=== PATIENT | female | born 1965 | race Caucasian/White ===

== ENCOUNTER 2017-08-28 13:06 | Emergency (ER) | payer BC ==
[2017-08-28 13:19] VITALS: BP 147/77
[2017-08-28] MEDS ORDERED: Albuterol/Ipratropium NEB.SOL* Albuterol 2.5 MG/Ipratropium 0.5 MG 3 ML INH ONE (13:44)
--- NOTE | 2017-08-28 14:00 | UC ---
Lucio Kasper Abhishek, scribed for Jackie Deal MD on 08/28/17 at 1350 . FLU HPI - HPI Summary HPI Summary: This patient is a 52 year old F presenting to [facility] accompanied by with a chief complaint of sinus and chest congestion since 08/13/17. PT states that she had contact with her grandson that visited on [place] who had head congestion. The pt reports cough (productive, clear and slightly yellow or brown ), wheezing, sore throat, and head congestion, ear ache, and PND. Pt denies fever, chills, N/V/D and rash. + fatigue. Pt was exposed to grandchild on xmas with nasal congestion. The patient rates the pain 2/10 in severity. Pt does not have asthma, but frequently get bronchitis. Symptoms aggravated by nothing. Symptoms alleviated by nothing Pt has been using MDI with short term relief. Pt did not get the flu vaccine. Pt states has a h/o htn. Not currently medicated - no current PCP Medications reviewed during this visit. - History of Current Complaint Chief Complaint: UCRespiratory Stated Complaint: CONGESTED Time Seen by Provider: 08/28/17 13:29 Hx Obtained From: Patient ?: No Onset/Duration: Gradual Onset - since 08/13/17, Lasting Days Severity Currently: Mild Severity Initially: Mild Pain Intensity: 2 Pain Scale Used: 0-10 Numeric Associated Signs & Symptoms: Positive: Myalgia - ear ache, abd pain (mid to left flank) and back pain, Cough - productive (clear and slightly yellow or brown),, Sore Throat, Nasal Congestion, Headache - "Congestion". Negative: Fever, Vomiting, Diarrhea - Allergy/Home Medications Allergies/Adverse Reactions: Allergies Allergy/AdvReac Type Severity Reaction Status Date / Time Levofloxacin [From Levaquin] Allergy See Comment Verified 08/28/17 13:19 Home Medications: Home Medications guaiFENesin ER TAB [Mucinex*] 1 tab PO PRN 08/28/17 [History] PMH/Surg Hx/FS Hx/Imm Hx Previously Healthy: Yes Cardiovascular History: Hypertension Respiratory History: Bronchitis, Pneumonia - Surgical History Surgical History: Yes Surgery Procedure, Year, and Place: Uterine ablation, Hysterectomy. - Family History Known Family History: Positive: Other - Lung Cancer Family History: ANG HAD HTN AND [place] AGE 51 - Social History Occupation: Employed Full-time Lives: With Family Alcohol Use: None Alcohol Amount: quit last year r/t stomach ulcer Substance Use Type: None Smoking Status (MU): Former Smoker Review of Systems Constitutional: Negative - Negative fever and chills Skin: Negative - Negative rash ENT: Sore Throat, Ear Ache, Sinus Congestion Respiratory: Shortness Of Breath, Cough - (productive, clear and slightly yellow or brown), Other - wheezing Gastrointestinal: Negative - Negative vomiting, diarrhea, and nausea, Abdominal Pain - mid to left flank pain Motor: Negative Neurovascular: Negative Musculoskeletal: Negative Neurological: Headache - "congestion" Psychological: Negative All Other Systems Reviewed And Are Negative: Yes Physical Exam Triage Information Reviewed: Yes Appearance: Well-Appearing, No Pain Distress, Well-Nourished Vital Signs: Initial Vital Signs Temp 97.9 F 08/28/17 13:15 Pulse 90 08/28/17 13:15 Resp 16 08/28/17 13:15 BP 147/77 08/28/17 13:15 Pulse Ox 99 08/28/17 13:15 Vital Signs Reviewed: Yes Eye Exam: Normal Eyes: Positive: Conjunctiva Clear ENT: Positive: Pharynx normal, Nasal congestion, Other - TM R>L + fluid turbinates inflammed + PND no exudate, no erythema uvula midline Dental Exam: Normal Neck exam: Normal Neck: Positive: Supple, Nontender, No Lymphadenopathy Respiratory Exam: Normal Respiratory: Positive: Wheezing - few scattered wheeze + rhonci right base no increase WOB no retraction coarse cough Cardiovascular Exam: Normal Cardiovascular: Positive: RRR, No Murmur, Pulses Normal Abdominal Exam: Normal Abdomen Description: Positive: Nontender, No Organomegaly Musculoskeletal Exam: Normal Musculoskeletal: Positive: Strength Intact Neurological Exam: Normal Neurological: Positive: Alert Psychological Exam: Normal Psychological: Positive: Normal Response To Family Skin Exam: Normal Diagnostics - Radiology Chest X-ray Radiology Interpretation Completed By: Radiologist - CXR reveals, per radiologist, NO ACTIVE DISEASE. ED physician has reviewed this radiology report and agrees. Re-Evaluation - Re-Evaluation First Eval Change: Improved - Pt improved following neb neg cxr will discharge Rx albuterol abx secretion precaution work note Flu Course/Dx - Course Course Of Treatment: Pt presents with 3 weeks uri, congestion, cough and fatigue. pt using MDI without relief. Pt with rhonci right base. Will check cxr. duoneb. reassess - Differential Dx/Diagnosis Provider Diagnoses: Acute brochitis Discharge - Discharge Plan Condition: Stable Disposition: HOME Prescriptions: Albuterol HFA INHALER* [Ventolin HFA Inhaler*] 1 puff INH Q4H PRN #1 mdi PRN Reason: wheeze Amoxicillin/Clavulanate TAB* [Augmentin TAB 875*] 875 mg PO BID #20 tab Patient Education Materials: Acute Bronchitis (ED) Forms: *Work Release Referrals: [facility] [Outside] Additional Instructions: - Stay well hydrated. Drink plenty of non-alcoholic, non-caffinated beverages. - Use albuterol, 2 puffs every 4 hours today, then every 4 hours as needed for cough and wheeze - Take antibiotics as prescribed until gone - After you have been on antibiotics for 2 days - change your toothbrush and your pillowcase. These infections are spread by secretions - do NOT share eating or drinking utensils - clean items you share with other people such as cell phones, computer mouse, TV remote, computer tablets, etc - Alternate ibuprofen (Advil, Motrin) 600mg and Tylenol every 3 hours for pain or fever. Take with food. Do NOT take for more than 4-5 days - Okay to take over the counter cough medication - You have been given contact info for the physician referral center - they will assist you in establishing with a new primary care provider Contact your doctor, return here or go to the emergency department with questions or concern The documentation as recorded by the Lucio baker Abhishek accurately reflects the service I personally performed and the decisions made by me, Jackie Deal MD.
--- NOTE | 2017-08-28 14:27 | RAD ---
INDICATION: Productive cough COMPARISON: October 28, 2012 TECHNIQUE: PA and lateral dual-energy views were obtained. FINDINGS: Bones/Soft Tissues: There are no acute bony findings. Cardiomediastinal: The cardiomediastinal silhouette is normal. Lungs: There are no infiltrates. Pleura: There are no pleural effusions. Other: None IMPRESSION: NO ACTIVE DISEASE.
== END 2017-08-28 14:49 | disposition home or self-care (01) ==
LOC: UCEAST 13:06
DX: J20.9 Acute bronchitis, unspecified (principal); Z88.1 Allergy status to other antibiotic agents; I10 Essential (primary) hypertension; Z90.710 Acquired absence of both cervix and uterus; Z87.891 Personal history of nicotine dependence
CPT/HCPCS: 71046; 99212; A9270-GY; G0463

== ENCOUNTER 2018-02-05 07:18 | Emergency (ER) | payer BC ==
[2018-02-05 07:30] VITALS: BP 161/97
--- NOTE | 2018-02-05 07:41 | UC ---
Skin Complaint HPI - HPI Summary HPI Summary: REMOVED A TICK FROM HER LEFT BREAST ABOUT A WEEK AGO. 2 DAYS AGO DEVELOPED A LARGE RED RING AT THE BITE SITE WHICH SHE DESCRIBES A [employer] LESION. SHE DENIES ANY HEADACHE, FEVER, BODY ACHES. - History of Current Complaint Chief Complaint: UCSkin Time Seen by Provider: 02/05/18 07:34 Stated Complaint: TICK BITE Hx Obtained From: Patient Onset/Duration: Sudden Onset, Lasting Days, Still Present Timing: Constant Onset Severity: Mild Current Severity: Mild Pain Intensity: 0 Pain Scale Used: 0-10 Numeric Location: Discrete - LEFT BREAST Character: Redness Aggravating Factor(s): Nothing Alleviating Factor(s): Nothing Associated Signs & Symptoms: Positive: Rash Related History: Insect Bite/Sting - Allergy/Home Medications Allergies/Adverse Reactions: Allergies Allergy/AdvReac Type Severity Reaction Status Date / Time levofloxacin [From Levaquin] Allergy See Comment Verified 02/05/18 07:30 Review of Systems Constitutional: Negative Skin: Rash Respiratory: Negative Cardiovascular: Negative Gastrointestinal: Negative Musculoskeletal: Negative All Other Systems Reviewed And Are Negative: Yes PMH/Surg Hx/FS Hx/Imm Hx Previously Healthy: Yes - Surgical History Surgical History: Yes Surgery Procedure, Year, and Place: Uterine ablation, Hysterectomy. - Family History Known Family History: Positive: Cardiac Disease, Hypertension, Other - Lung Cancer Family History: BROTHER HAD HTN AND [place] AGE 51 - Social History Alcohol Use: Rare Alcohol Amount: quit last year r/t stomach ulcer Substance Use Type: None Smoking Status (MU): Former Smoker Physical Exam Triage Information Reviewed: Yes Appearance: Well-Appearing, No Pain Distress, Well-Nourished Vital Signs: Initial Vital Signs Temp 98.0 F 02/05/18 07:25 Pulse 80 02/05/18 07:25 Resp 18 02/05/18 07:25 BP 161/97 02/05/18 07:25 Pulse Ox 97 02/05/18 07:25 Vital Signs Reviewed: Yes Eyes: Positive: Conjunctiva Clear ENT: Positive: Hearing grossly normal Neck: Positive: Supple Respiratory: Positive: No respiratory distress, No accessory muscle use Cardiovascular: Positive: Pulses Normal Abdomen Description: Positive: Soft Musculoskeletal: Positive: No Edema Neurological: Positive: Alert Psychological: Positive: Age Appropriate Behavior Skin: Positive: rashes - 10CM DIAMETER AREA OF ERYTHEMA LEFT BREAST. NO EXCORIATION, NO DRAINAGE Course/Dx - Diagnoses Provider Diagnoses: ERYTHEMA MIGRANS Discharge - Sign-Out/Discharge Documenting (check all that apply): Discharge/Admit/Transfer - Discharge Plan Condition: Stable Disposition: HOME Prescriptions: Doxycycline Monohydrate [Doxycycline Monohydrate] 1 cap PO BID #28 cap Patient Education Materials: Lyme Disease (ED) Referrals: Jules ZACARIAS,Javi Mcguire [Medical Doctor] - 2 Weeks Additional Instructions: LYME DISEASE: You are suspected of having Lyme disease. Further testing may be necessary to confirm the diagnosis. Lyme disease is an infection spread through the bite of a deer tick. Symptoms include rash, fever, fatigue, joint swelling, and aches. Lyme disease can be treated with antibiotics. It is important that you take the entire course of medication. Call the physician if you develop severe headache, stiff neck, paralysis or "drooping" of either side of the face, or a worsening of any other symptom. The majority of patients with early Lyme disease who receive appropriate antibiotic therapy have complete resolution of the signs and symptoms of infection within 20 days and, in one trial, erythema migrans (the rash) and its associated symptoms resolved in a mean of five to six days. Patients who are more systemically ill at the beginning of treatment may take longer to recover. Some patients have mild subjective symptoms, such as headache, musculoskeletal pain, arthralgia, or fatigue, that persist for weeks to months after treatment. These subjective findings often resolve spontaneously, usually within six months , without further antibiotic therapy; they are not due to ongoing active Lyme disease. Almost all patients who have a satisfactory response to antibiotic therapy do well over the long term care social worker. YOUR BLOOD PRESSURE WAS ELEVATED TODAY (161/97). THIS MAY BE DUE TO YOUR ACUTE CONDITION. MONITOR AND FOLLOW-UP WITH YOUR PCP WITHIN 4 WEEKS IF IT HAS NOT RETURNED TO NORMAL. CALL THE NUMBER BELOW FOR ASSISTANCE IN ESTABLISHING WITH A PCP An additional resource available to assist in finding the appropriate physician for your health care needs is the [facility] ([facility] Wilkinson). You may contact them by calling [phone]. - Billing Disposition and Condition Condition: STABLE Disposition: Home
== END 2018-02-05 07:45 | disposition home or self-care (01) ==
LOC: UCEAST 07:18
DX: S20.162A Insect bite (nonvenomous) of breast, left breast, initial encounter (principal); A26.0 Cutaneous erysipeloid; W57.XXXA Bitten or stung by nonvenomous insect and other nonvenomous arthropods, initial encounter; Z88.1 Allergy status to other antibiotic agents; Z87.891 Personal history of nicotine dependence; Y92.9 Unspecified place or not applicable
CPT/HCPCS: 99212; G0463

== ENCOUNTER 2018-11-12 17:45 | Emergency (ER) | payer BC ==
[2018-11-12] MEDS ORDERED: Acetaminophen TAB* 325 MG PO ONE (19:32)
--- NOTE | 2018-11-12 20:32 | UC ---
Hypertension HPI - HPI Summary HPI Summary: Ms. Cross has had problems with her blood pressure for the last several months. It started originally after she was treated for Lyme with Doxy. Today she developed a frontal LUCIO and some nausea and her blood pressure was quite high. She does have a history of migraines. - History of Current Complaint Chief Complaint: UCGeneralIllness Stated Complaint: HBP Time Seen by Provider: 11/12/18 18:03 Hx Obtained From: Patient ?: No Onset/Duration: Lasting Hours Timing: Constant Aggravating Factor(s): Nothing Alleviating Factor(s): Nothing Associated Signs And Symptoms: Positive: Headaches - Nausea - Allergies/Home Medications Allergies/Adverse Reactions: Allergies Allergy/AdvReac Type Severity Reaction Status Date / Time levofloxacin [From Levaquin] Allergy See Comment Verified 11/12/18 17:51 Home Medications: Home Medications Carvedilol [Coreg] 12.5 mg PO BID 11/12/18 [History Confirmed 11/12/18] clonazePAM TAB(*) [Klonopin TAB(*)] 0.25 mg PO TID PRN 11/12/18 [History Confirmed 11/12/18] PMH/Surg Hx/FS Hx/Imm Hx Previously Healthy: Yes Cardiovascular History: Hypertension - Surgical History Surgical History: Yes Surgery Procedure, Year, and Place: Uterine ablation, Hysterectomy. - Family History Known Family History: Positive: Cardiac Disease, Hypertension, Other - Lung Cancer Family History: BROTHER HAD HTN AND [place] AGE 51 - Social History Alcohol Use: None Alcohol Amount: quit last year r/t stomach ulcer Substance Use Type: None Smoking Status (MU): Former Smoker Review of Systems All Other Systems Reviewed And Are Negative: Yes Constitutional: Positive: Negative Skin: Positive: Negative Eyes: Positive: Negative ENT: Positive: Negative Respiratory: Positive: Negative Cardiovascular: Positive: Negative Gastrointestinal: Positive: Negative Genitourinary: Positive: Negative Motor: Positive: Negative Neurovascular: Positive: Negative Musculoskeletal: Positive: Negative Physical Exam - Summary Physical Exam Summary: She is nontoxic in appearance with an elevated diastolic blood pressure. Triage Information Reviewed: Yes Appearance: Well-Appearing Vital Signs: Initial Vital Signs Temp 99.6 F 11/12/18 17:50 Pulse 69 11/12/18 17:50 Resp 18 11/12/18 17:50 BP 167/109 11/12/18 17:50 Pulse Ox 97 11/12/18 17:50 Vital Signs Reviewed: Yes Eye Exam: Normal ENT Exam: Normal Neck exam: Normal - No meningeal signs Respiratory Exam: Normal Cardiovascular Exam: Normal Abdominal Exam: Normal Musculoskeletal Exam: Normal Neurological Exam: Normal Psychological Exam: Normal Hypertension Course/Dx - Course Course Of Treatment: She normally takes Coreg 12.5 mgs BID. She had not taken her evening dose so I had her take 25 mgs PO. This managed her blood pressure and significantly helped her LUCIO. She still had a 2/10 LUCIO over the left eye and a CT was obtained that was negative. This certainly does not sound like a SAH but rather a hypertensive issue and I recommended that she take 25 mgs of Coreg BID and follow up with her PCP. She has an appt. tomorrow. - Differential Dx/Diagnosis Provider Diagnosis: Hypertension Discharge - Sign-Out/Discharge Documenting (check all that apply): Patient Departure All imaging exams completed and their final reports reviewed: Yes - Discharge Plan Condition: Stable Disposition: HOME Patient Education Materials: Hypertension (ED) Referrals: Tori Grimm [Primary Care Provider] - Additional Instructions: Please keep your appointment for tomorrow. Take 25 mgs of Coreg in the AM. - Billing Disposition and Condition Condition: STABLE Disposition: Home
[2018-11-12 20:47] VITALS: BP 147/84
== END 2018-11-12 20:40 | disposition home or self-care (01) ==
LOC: UCEAST 17:45
DX: I10 Essential (primary) hypertension (principal); Z87.891 Personal history of nicotine dependence; Z79.899 Other long term (current) drug therapy
CPT/HCPCS: 70450; 99212; A9270-GY; G0463

== ENCOUNTER 2019-06-16 14:35 | Emergency (ER) | payer BC ==
--- OUTSIDE RECORDS SUMMARY | 2019-06-16 14:40 | XMS REPORT | Continuity of Care Document ---
:1965 External Reference #:[id number] Author Name Tori Pitt PA (transmitted by agent of provider Josiah Bolaños) Address [address] [facility], [facility] [address] [place] [address] Care Team Providers Name Role Phone HCP given Care Team Information Acute Care Physical Therapist Unavailable Problems Active Problems Provider Date Cobalamin deficiency Tori Pitt PA Onset: 04/09/2018 Vitamin D deficiency Tori Pitt PA Onset: 04/09/2018 Constipation Tori Pitt PA Onset: 03/13/2018 Degenerative joint disease involving multiple Tori Pitt PA Onset: 2017 joints Hearing loss Tori Pitt PA Onset: 03/13/2018 Migraine without aura, not refractory Tori Pitt PA Onset: 03/13/2018 Attention deficit hyperactivity disorder, 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 Anxiety state Tori Pitt PA Onset: 03/13/2018 Essential hypertension Tori Pitt PA Onset: 03/13/2018 Social History Type Date Description Comments Sex Unknown Tobacco Use Reviewed: 03/13/18 Denies Cigarette Use Smoking Status Reviewed: 04/11/18 Denies Cigarette Use ETOH Use Rarely consumes alcohol Recreational Drug Use 03/13/2018 Denies Drug Use Tobacco Use Start: Unknown Non Smoker Recreational Drug Use Formerly used Marijuana sporadically Exercise Type/Frequency Does not exercise Sun Exposure Does not use sunscreen Seat Belt/Car Seat Seat Belt Use - Yes Guns in Home No Smoke Alarms Yes smoke alarm Allergies, Adverse Reactions, Alerts Active Allergies Reaction Severity Comments Date Levaquin joint pain 03/13/2018 Medications Active Medications SIG Qnty Indications Ordering Provider Date Carvedilol Phosphate 1 tab by mouth 30caps I10 Lokesh Sellers, 11/13/2018 ER daily for blood M.D. 40mg Caps ER 24HR pressure Escitalopram Oxalate 1tab by mouth 30tabs F41.9 Lokesh Sellers, 2018 every day for M.D. 10mg Tablets anxiety Klonopin 1 tab up to three 90tabs F41.9 Lokesh Sellers, 03/13/2018 0.5mg Tablets a day as needed M.D. for anxiety Immunizations Description No Information Available Vital Signs Date Vital Result Comment 11/13/2018 4:05pm BP Systolic 144 mmHg w/automatic cuff BP Diastolic 90 mmHg w/automatic cuff Heart Rate 65 /min Weight 153.00 lb with shoes 09/15/2018 3:48pm BP Systolic 118 mmHg BP Diastolic 72 mmHg Body Temperature 98.3 F Results Description No Information Available Procedures Date Code Description Status 08/19/2015 75064188 Mammogram Completed 08/19/2014 [id number] Colonoscopy Completed Medical Devices Description No Information Available Encounters Description No Information Available Assessments Description No Information Available Plan of Treatment 09/02/2018 - Tori Pitt PAI10 Essential (primary) hypertensionNew Medication :Carvedilol 12.5 mg - 1 tab by mouth twice daily for high blood pressureComments :BP normal here today but has been consistently elevated at home. Increase carvedilol from 6.25mg to 12.5mg. Discussed lifestyle changes including healthy , low sodium diet, regular exercise, stress reduction, adequate hydration, low caffeine intake. Pt to continue taking BP at home, call if not improving. Otherwise f/u in 1-2 months.Follow up:f/u 1-2 months on BPF41.9 Anxiety disorder , unspecifiedComments:Pt may continue to use prn klonopin. Pt working on appt w counselor. F/u in 1-2 months, sooner if needed. Functional Status Description No Information Available Mental Status Description No Information Available Referrals Description No Information Available
--- OUTSIDE RECORDS SUMMARY | 2019-06-16 14:40 | XMS REPORT | Continuity of Care Document ---
:1965 External Reference #:[id number] Author Name Tori Pitt PA (transmitted by agent of provider Josiah Bolaños) Address [address] [facility], [facility] [address] [place] [address] Care Team Providers Name Role Phone HCP given Care Team Information Property Clerk Unavailable Problems Active Problems Provider Date Cobalamin [...] Available Procedures Date Code Description Status 08/19/2015 [id number] Mammogram Completed 08/19/2014 [id number] Colonoscopy Completed Medical Devices Description No Information [...]
--- OUTSIDE RECORDS SUMMARY | 2019-06-16 14:40 | XMS REPORT | Continuity of Care Document ---
:1965 External Reference #:[id number] Author Name Tori Pitt PA (transmitted by agent of provider Josiah Bolaños) Address [address] [facility], 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 Recheck few weeks, sooner if BP not improving.Follow up:f/u BP few bfnlnK42.9 Anxiety disorder, unspecifiedNew Medication:Escitalopram Oxalate 10 mg - 1tab by mouth every day for anxietyComments:Pt may continue to use prn klonopin. Add lexapro daily. Pt working on appt w counselor. F/u in few weeks, sooner if needed.R51 [id number] Other termite exterminator helper (current) drug therapy Functional Status Description No Information Available Mental Status Description No Information Available Referrals Description No Information Available
[2019-06-16 14:58] VITALS: BP 123/79
--- NOTE | 2019-06-16 16:01 | UC ---
Respiratory Complaint HPI - HPI Summary HPI Summary: 54-year-old female who has had minor cough and cold symptoms over the past 3 weeks. She has a nonproductive dry cough. She states her sinuses are now draining and so she no longer has sinus pressure. - History of Current Complaint Chief Complaint: UCGeneralIllness Stated Complaint: URI Time Seen by Provider: 06/16/19 15:04 Hx Obtained From: Patient ?: No Onset/Duration: Gradual Onset Severity Initially: Mild Severity Currently: None Pain Intensity: 0 Character: Cough: Nonproductive Aggravating Factors: Nothing Alleviating Factors: Nothing Associated Signs And Symptoms: Positive: URI, Nasal Congestion - Patient states that she has had postnasal drainage and the sinus pressure has resolved that she was experiencing earlier. - Allergies/Home Medications Allergies/Adverse Reactions: Allergies Allergy/AdvReac Type Severity Reaction Status Date / Time levofloxacin [From Levaquin] Allergy See Comment Verified 06/16/19 14:52 Home Medications: Home Medications Escitalopram * [Lexapro *] 20 mg PO DAILY 06/16/19 [History Confirmed 06/16/19] PMH/Surg Hx/FS Hx/Imm Hx Previously Healthy: Yes Cardiovascular History: Hypertension - Surgical History Surgical History: Yes Surgery Procedure, Year, and Place: Uterine ablation, Hysterectomy. - Family History Known Family History: Positive: Cardiac Disease, Hypertension, Other - Lung Cancer Family History: BROTHER HAD HTN AND [place] AGE 51 - Social History Lives: With Family Alcohol Use: None Alcohol Amount: quit last year r/t stomach ulcer Substance Use Type: None Smoking Status (MU): Former Smoker Review of Systems All Other Systems Reviewed And Are Negative: Yes ENT: Positive: Sinus Congestion - Patient states she had sinus congestion and pain last week but now her sinuses are draining and that has resolved. Respiratory: Positive: Cough - Nonproductive cough. Is Patient Immunocompromised?: No Physical Exam Triage Information Reviewed: Yes Appearance: Well-Appearing, No Pain Distress, Well-Nourished Vital Signs: Initial Vital Signs Temp 97.9 F 06/16/19 14:53 Pulse 60 06/16/19 14:53 Resp 18 06/16/19 14:53 BP 123/79 06/16/19 14:53 Pulse Ox 96 06/16/19 14:53 Vital Signs Reviewed: Yes Eyes: Positive: Conjunctiva Clear ENT: Positive: Hearing grossly normal, Pharynx normal, Nasal congestion, Nasal drainage - Minimal clear nasal coryza., TMs normal, Uvula midline. Negative: Sinus tenderness Neck: Positive: Supple, Nontender, No Lymphadenopathy Respiratory: Positive: Lungs clear, Normal breath sounds, No respiratory distress, No accessory muscle use Cardiovascular: Positive: RRR, No Murmur, Pulses Normal, Brisk Capillary Refill Musculoskeletal Exam: Normal Neurological Exam: Normal Psychological Exam: Normal Skin Exam: Normal Respiratory Course/Dx - Course Course Of Treatment: Chest x-ray:Indication: Cough. 2 views of the chest demonstrate no mediastinal shift. Heart is of normal size and configuration. Lung kaplan show no pleural fluid, pneumonia or pneumothorax. IMPRESSION: No active cardiopulmonary disease is noted. At this point time I believe this still may be a viral upper respiratory illness or perhaps even related to allergies. She is to follow-up with her primary care provider if she starts running a fever or having a productive cough or any worsening symptoms. - Differential Dx/Diagnosis Provider Diagnosis: URI (upper respiratory infection) Discharge ED - Sign-Out/Discharge Documenting (check all that apply): Patient Departure All imaging exams completed and their final reports reviewed: Yes - Discharge Plan Condition: Good Disposition: HOME Patient Education Materials: Upper Respiratory Infection (DC) Referrals: Tori Pitt PA [Primary Care Provider] - Additional Instructions: Increase fluids. Recheck with your primary care provider if you start running a fever or having worsening symptoms over the next 4-5 days. - Billing Disposition and Condition Condition: GOOD Disposition: Home
== END 2019-06-16 16:13 | disposition home or self-care (01) ==
LOC: UCEAST 14:35
DX: J06.9 Acute upper respiratory infection, unspecified (principal); I10 Essential (primary) hypertension; Z88.1 Allergy status to other antibiotic agents; Z87.891 Personal history of nicotine dependence
CPT/HCPCS: 71046; 99211; G0463

== ENCOUNTER 2019-07-15 10:15 | Emergency (ER) | payer BC ==
[2019-07-15 10:30] VITALS: BP 171/94
[2019-07-15] MEDS ORDERED: Albuterol/Ipratropium NEB.SOL* Albuterol 2.5 MG/Ipratropium 0.5 MG 3 ML INH ONE (10:38)
--- NOTE | 2019-07-15 10:42 | UC ---
Throat Pain/Nasal Mau HPI - HPI Summary HPI Summary: 54-year-old female who has had cough and cold symptoms since mid May. She was seen at the time and was diagnosed with an upper respiratory illness and allergies. She now has some purulent nasal coryza, sinus pressure and loose cough. She does not recall a fever however states that she will break out in sweats at times. She did not get a flu shot this year. - History of Current Complaint Chief Complaint: UCRespiratory Stated Complaint: COUGH,CONGESTION,SWEATY Time Seen by Provider: 07/15/19 10:34 Hx Obtained From: Patient ?: No Onset/Duration: Gradual Onset Severity: Mild Pain Intensity: 4 Cough: Nonproductive Associated Signs & Symptoms: Positive: Wheezing, Sinus Discomfort, Nasal Discharge - Allergies/Home Medications Allergies/Adverse Reactions: Allergies Allergy/AdvReac Type Severity Reaction Status Date / Time levofloxacin [From Levaquin] Allergy See Comment Verified 07/15/19 10:30 PMH/Surg Hx/FS Hx/Imm Hx Previously Healthy: Yes Cardiovascular History: Hypertension - Surgical History Surgical History: Yes Surgery Procedure, Year, and Place: Uterine ablation, Hysterectomy. - Family History Known Family History: Positive: Cardiac Disease, Hypertension, Other - Lung Cancer Family History: BROTHER HAD HTN AND [place] AGE 51 - Social History Alcohol Use: Rare Alcohol Amount: quit last year r/t stomach ulcer; "once/year" Substance Use Type: None Smoking Status (MU): Former Smoker Review of Systems All Other Systems Reviewed And Are Negative: Yes Constitutional: Positive: Fever - Patient states she occasionally breaks out in sweats so she thinks she may have had a fever. ENT: Positive: Nasal Discharge, Sinus Congestion, Sinus Pain/Tenderness Respiratory: Positive: Cough - Loose cough Is Patient Immunocompromised?: No Physical Exam Triage Information Reviewed: Yes Appearance: Well-Appearing, No Pain Distress, Well-Nourished Vital Signs: Initial Vital Signs Temp 98.3 F 07/15/19 10:25 Pulse 75 07/15/19 10:25 Resp 16 07/15/19 10:25 BP 171/94 07/15/19 10:25 Pulse Ox 97 07/15/19 10:25 Vital Signs Reviewed: Yes Eyes: Positive: Conjunctiva Clear ENT: Positive: Hearing grossly normal, Pharynx normal - Yellow purulent postnasal drainage., Nasal congestion, Nasal drainage - Yellow nasal coryza., TMs normal, Sinus tenderness - Tender over the frontal Neck: Positive: Supple, Nontender, No Lymphadenopathy Respiratory: Positive: No respiratory distress, No accessory muscle use, Rhonchi - Scattered rhonchi with mild wheezing with forced expiration., Wheezing Cardiovascular: Positive: RRR, No Murmur, Pulses Normal, Brisk Capillary Refill Musculoskeletal Exam: Normal Neurological Exam: Normal Psychological Exam: Normal Skin Exam: Normal Throat Pain/Nasal Course/Dx - Course Course Of Treatment: Chest x-ray:Indication: Cough. 2 views of the chest demonstrate no mediastinal shift. Heart is of normal size and configuration. Lung kaplan are clear. When compared to previous exam of June 16, 2019 no significant change is noted. IMPRESSION: No active cardiopulmonary disease is noted. DuoNeb treatment: The patient felt better after the DuoNeb treatment. She has increased aeration but continues to have mild wheezing with expiration. I am going to treat her with Augmentin 875 mg by mouth twice a day 10 days as well as an albuterol inhaler 2 puffs every 4-6 hours as needed for wheezing. She has used an inhaler in the past however I did teach her the proper use of the inhaler. - Differential Dx/Diagnosis Provider Diagnosis: Sinusitis, Bronchitis Discharge ED - Sign-Out/Discharge Documenting (check all that apply): Patient Departure All imaging exams completed and their final reports reviewed: Yes - Discharge Plan Condition: Good Disposition: HOME Prescriptions: Albuterol HFA INHALER* [Ventolin HFA Inhaler*] 2 puff INH Q4H PRN 5 Days #1 mdi PRN Reason: Wheezing Amoxicillin/Clavulanate TAB* [Augmentin TAB 875*] 875 mg PO BID 10 Days #20 tab Patient Education Materials: Sinusitis (ED) Referrals: Tori Pitt PA [Primary Care Provider] - Additional Instructions: Increase fluids, take the Augmentin with food. Definite follow-up with your primary care provider early next week if no improvement. - Billing Disposition and Condition Condition: GOOD Disposition: Home
== END 2019-07-15 11:15 | disposition home or self-care (01) ==
LOC: UCCORT 10:15
DX: J32.9 Chronic sinusitis, unspecified (principal); J40 Bronchitis, not specified as acute or chronic; I10 Essential (primary) hypertension; Z88.1 Allergy status to other antibiotic agents; Z87.891 Personal history of nicotine dependence
CPT/HCPCS: 71046; 99212; A9270-GY; G0463

== ENCOUNTER 2019-07-29 09:46 | Emergency (ER) | payer BC ==
[2019-07-29 10:13] VITALS: BP 145/90
--- NOTE | 2019-07-29 10:16 | UC ---
Respiratory Complaint HPI - HPI Summary HPI Summary: 54 yo female presents with cough. She tells me that she was seen here on 07/15 for URI symptoms and CXR was negative. She was placed on augmentin for 10 days and given a duoneb treatment in the clinic. She states that her sinus symptoms have improved, but she feels that her cough is worse. She continues to feel wheezing in her lung and over the last 2-3 days has felt a discomfort in her "lungs" when coughing and deep breaths. Feels "worn out" and tired. She has an albuterol inhaler, but has not been using it because she is out of her HTN medications since saturday and states she doesn't want her BP to elevate. She does not smoke. She denies fever, SOB, chest pain, abdominal pain, n/v, headache , dizziness. She states her insurance changed and her PCP does not take her insurance any longer, thus she has been out of her HTN medication and lexapro since 07/24 and would like a refill today and referral to a new PCP. - History of Current Complaint Chief Complaint: UCGeneralIllness Stated Complaint: COUGH CONGESTION BACK PAIN Time Seen by Provider: 07/29/19 10:15 Hx Obtained From: Patient Onset/Duration: Gradual Onset Severity Initially: Moderate Severity Currently: Moderate Pain Intensity: 5 Pain Scale Used: 0-10 Numeric - Allergies/Home Medications Allergies/Adverse Reactions: Allergies Allergy/AdvReac Type Severity Reaction Status Date / Time levofloxacin [From Levaquin] Allergy See Comment Verified 07/29/19 10:05 PMH/Surg Hx/FS Hx/Imm Hx Cardiovascular History: Hypertension Psychological History: Anxiety - Surgical History Surgical History: Yes Surgery Procedure, Year, and Place: Uterine ablation, Hysterectomy. - Family History Known Family History: Positive: Cardiac Disease, Hypertension, Other - Lung Cancer Family History: BROTHER HAD HTN AND [place] AGE 51 - Social History Occupation: Employed Full-time Lives: With Family Alcohol Use: None Alcohol Amount: quit last year r/t stomach ulcer; "once/year" Substance Use Type: None Smoking Status (MU): Former Smoker Household Exposure Type: Cigarettes Review of Systems All Other Systems Reviewed And Are Negative: No Constitutional: Positive: Fatigue Skin: Positive: Negative Eyes: Positive: Negative ENT: Positive: Negative Respiratory: Positive: Cough Cardiovascular: Positive: Negative Gastrointestinal: Positive: Negative Neurovascular: Positive: Negative Musculoskeletal: Positive: Negative Neurological: Positive: Negative Psychological: Positive: Negative Physical Exam - Summary Physical Exam Summary: GENERAL: NAD. WDWN. No pain distress. SKIN: No rashes, sores, lesions, or open wounds. HEENT: Head: AT/NC Eyes: Conjunctiva clear without inflammation or discharge. Ears: Hearing grossly normal. TMs intact, no bulging, erythema, or edema. Nose: Nasal mucosa pink and moist. TTP maxillary > frontal sinus. Throat: Posterior oropharynx without exudates, erythema, or tonsillar enlargement. Uvula midline. NECK: Supple. Nontender. No lymphadenopathy. CHEST: Moderate wheezing throughout. No r/r. No accessory muscle use. Breathing comfortably and in no distress. CV: RRR. Pulses intact. Cap refill <2seconds NEURO: Alert. PSYCH: Age appropriate behavior. Triage Information Reviewed: Yes Vital Signs: Initial Vital Signs Temp 97.8 F 07/29/19 10:07 Pulse 76 07/29/19 10:07 Resp 16 07/29/19 10:07 BP 145/90 07/29/19 10:07 Pulse Ox 99 07/29/19 10:07 Laboratory Tests 07/29/19 10:41 Influenza A (Rapid) Negative Influenza B (Rapid) Negative Vital Signs Reviewed: Yes Diagnostics - Radiology CXR Radiology Interpretation Completed By: Radiologist Summary of Radiographic Findings: IMPRESSION: NO ACTIVE CARDIOPULMONARY DISEASE. Respiratory Course/Dx - Course Course Of Treatment: CXR as above. In the clinic she was given a duoneb treatment with great relief. Breathing easier and lung sounds improved. Still with mild wheezing right lung. She was given another nebulizer treatment with albuterol alone and po dexamethasone. Had further relief and feels much better. Will refill her lexapro and coreg as prescribed prior - verified with pharmacy Coreg ER 40mg QD and Lexapro 10mg QD - pt states this sounds right. Given [facility] physician referral contact number to establish with a new PCP. Pt states she will call today. - Differential Dx/Diagnosis Provider Diagnosis: Bronchitis, HTN (hypertension) Discharge ED - Sign-Out/Discharge Documenting (check all that apply): Patient Departure All imaging exams completed and their final reports reviewed: Yes - Discharge Plan Condition: Stable Disposition: HOME Prescriptions: Benzonatate CAP* [Tessalon 100 MG CAP*] 100 mg PO TID PRN #21 cap PRN Reason: Cough Carvedilol CR (NF) [Coreg CR (NF)] 40 mg PO DAILY #30 cap Codeine Phosphate/Guaifenesin [Guaifen-Codeine 100-10 mg/5 ml] 5 ml PO BEDTIME PRN #35 ml MDD 5mL PRN Reason: Cough Escitalopram Oxalate [Lexapro 10 mg] 10 mg PO DAILY #30 tab predniSONE TAB* [Deltasone 20 MG TAB*] 40 mg PO DAILY #10 tab Patient Education Materials: Acute Bronchitis (ED) Referrals: No Primary Care Phys,NOPCP [Primary Care Provider] - [facility] PHYSICIAN REFERRAL [Outside] - As Soon As Possible Additional Instructions: If you develop a fever, shortness of breath, chest pain, new or worsening symptoms - please call your PCP or go to the ED immediately. Your blood pressure was high at todays visit. Please see your primary provider within 4 weeks for recheck and re-evaluation. Continue to use the albuterol inhaler as directed. START the steroids tomorrow. Please call the physician referral number as below to schedule an appointment with a new primary doctor within 1 month. - Billing Disposition and Condition Condition: STABLE Disposition: Home - Attestation Statements Provider Attestation: I was available for consult. This patient was seen by the [facility]. The patient was not presented to, seen by, or examined by me. -Yuriy
[2019-07-29] MEDS ORDERED: Albuterol/Ipratropium NEB.SOL* Albuterol 2.5 MG/Ipratropium 0.5 MG 3 ML INH ONE (10:23)
[2019-07-29 10:53] LABS: Influenza A Molecular NEGATIVE (Negative); Influenza B Molecular NEGATIVE (Negative)
[2019-07-29] MEDS ORDERED: Dexamethasone TAB* 4 MG PO ONE (11:31)
[2019-07-29] MEDS ORDERED: Albuterol 2.5 MG/3 ML NEB.SOL* (0.083%) INH ONE (11:31)
--- NOTE | 2019-07-30 13:55 | UC ---
- Progress Note Progress Note: PROGRESS NOTE: LAB RESULTS:sputum smear shows 4+ neutrophils. 4+ gram variable cocci Sputum culture is pending. MDM:no change in treatment at this time. Wait for sputum culture. Fredo Cardoza MD Course/Dx - Diagnoses Provider Diagnoses: Bronchitis, HTN (hypertension) Discharge ED - Sign-Out/Discharge Documenting (check all that apply): Post-Discharge Follow Up All imaging exams completed and their final reports reviewed: Yes - Discharge Plan Condition: Stable Disposition: HOME Prescriptions: Benzonatate CAP* [Tessalon 100 MG CAP*] 100 mg PO TID PRN #21 cap PRN Reason: Cough Carvedilol CR (NF) [Coreg CR (NF)] 40 mg PO DAILY #30 cap Codeine Phosphate/Guaifenesin [Guaifen-Codeine 100-10 mg/5 ml] 5 ml PO BEDTIME PRN #35 ml MDD 5mL PRN Reason: Cough Escitalopram Oxalate [Lexapro 10 mg] 10 mg PO DAILY #30 tab predniSONE TAB* [Deltasone 20 MG TAB*] 40 mg PO DAILY #10 tab Patient Education Materials: Acute Bronchitis (ED) Referrals: [facility] [place] [place]Outside] - As Soon As Possible No Primary Care Phys,NOPCP [Primary Care Provider] - Additional Instructions: If you develop a fever, shortness of breath, chest pain, new or worsening symptoms - please call your PCP or go to the ED immediately. Your blood pressure was high at todays visit. Please see your primary provider within 4 weeks for recheck and re-evaluation. Continue to use the albuterol inhaler as directed. START the steroids tomorrow. Please call the physician referral number as below to schedule an appointment with a new primary doctor within 1 month. - Billing Disposition and Condition Condition: STABLE Disposition: Home
== END 2019-07-29 12:09 | disposition home or self-care (01) ==
LOC: UCEAST 09:46
DX: J40 Bronchitis, not specified as acute or chronic (principal); I10 Essential (primary) hypertension; R53.83 Other fatigue; Z88.1 Allergy status to other antibiotic agents; Z87.891 Personal history of nicotine dependence
CPT/HCPCS: 71046; 87070; 87205; 99213; A9270-GY; G0463; J8540

== ENCOUNTER 2019-12-06 10:19 | Emergency (ER) | payer BC ==
[2019-12-06 11:04] VITALS: BP 169/88
--- NOTE | 2019-12-06 11:27 | ED ---
Skin Complaint - HPI Summary HPI Summary: 54 y WF presents with a 5x4 target rash underneath her right breast noted about 5 days ago, associated with fatigue and mild joint aches, didn't notice tick embedded, has had lyme dz in the past about 2 years ago. - History of Current Complaint Chief Complaint: UCSkin Time Seen by Provider: 12/06/19 10:59 Stated Complaint: TICK BITE Hx Obtained From: Patient Onset/Duration: Started Days Ago Skin Exposure Onset/Duration: Days Ago Timing: Constant Onset Severity: Moderate Pain Intensity: 0 - Allergy/Home Medications Allergies/Adverse Reactions: Allergies Allergy/AdvReac Type Severity Reaction Status Date / Time levofloxacin [From Levaquin] Allergy See Comment Verified 12/06/19 11:04 Home Medications: Home Medications Albuterol HFA INHALER* [Ventolin HFA Inhaler*] 2 puff INH Q4H PRN 5 Days #1 mdi 07/15/19 [Rx Confirmed 12/06/19] Carvedilol CR 40 mg CAP (NF) [Coreg CR 40 mf CAP (NF)] 40 mg PO DAILY #30 cap [Rx Confirmed 12/06/19] Escitalopram Oxalate [Lexapro 10 mg] 10 mg PO DAILY #30 tab 07/29/19 [Rx Confirmed 12/06/19] DOXYcycline CAP(*) [DOXYcycline 100MG CAP(*)] 100 mg PO BID 21 Days #42 cap [Rx] clonazePAM TAB(*) [Klonopin TAB(*)] 0.5 mg PO TID PRN 12/06/19 [History Confirmed 12/06/19] PMH/Surg Hx/FS Hx/Imm Hx Previously Healthy: No - Had lyme dz 2 years ago Endocrine/Hematology History: Denies: Hx Diabetes, Hx Thyroid Disease Cardiovascular History: Reports: Hx Hypertension Respiratory History: Reports: Other Respiratory Problems/Disorders - PNEUMONIA 2 X'S LAST YEAR Denies: Hx Asthma, Hx Chronic Obstructive Pulmonary Disease (COPD) GI History: Reports: Hx Ulcer - stomach 2014 Psychiatric History: Reports: Hx Anxiety - Cancer History Hx Chemotherapy: No Hx Radiation Therapy: No - Surgical History Surgery Procedure, Year, and Place: Uterine ablation, Hysterectomy. Infectious Disease History: No Infectious Disease History: Denies: Hx Clostridium Difficile, Hx Hepatitis, Hx Human Immunodeficiency Virus (HIV), Hx of Known/Suspected MRSA, Hx Shingles, Hx Tuberculosis, History Other Infectious Disease, Traveled Outside the [place] in Last 30 Days - Family History Known Family History: Positive: Cardiac Disease, Hypertension, Other - Lung Cancer Family History: BROTHER HAD HTN AND [place] AGE 51 - Social History Alcohol Use: None Alcohol Amount: quit last year r/t stomach ulcer; "once/year" Substance Use Type: Reports: None Hx Tobacco Use: No Smoking Status (MU): Former Smoker Review of Systems Constitutional: Negative Eyes: Negative ENT: Negative Cardiovascular: Negative Respiratory: Negative Gastrointestinal: Negative Genitourinary: Negative Musculoskeletal: Negative Positive: Rash Neurological/Mental Status: Negative Positive: Headache Psychological: Normal All Other Systems Reviewed And Are Negative: Yes Physical Exam - Summary Physical Exam Summary: Vital Signs Reviewed: Yes Appearance: Positive: No Pain Distress Skin: Positive: Warm, erythema migrans below right breast 5x4cm Head/Face: Positive: Normal Head/Face Inspection Eyes: Positive: Normal ENT: Positive: Normal ENT inspection Dental: Negative: Cervical Lymphadenopathy Neck: Positive: Supple Respiratory/Lung Sounds: Positive: Clear to Auscultation Cardiovascular: Positive: Normal, RRR, S1, S2 Abdomen Description: Positive: Nontender Musculoskeletal: Positive: Normal Neurological: Positive: Normal Psychiatric: Positive: Normal Vital Signs On Initial Exam: Initial Vitals Temp Pulse Resp BP Pulse Ox 36.5 C 73 16 169/88 97 12/06/19 11:00 12/06/19 11:00 12/06/19 11:00 12/06/19 11:00 12/06/19 11:00 Diagnostics - Vital Signs Vital Signs Temp Pulse Resp BP Pulse Ox 12/06/19 11:00 36.5 C 73 16 169/88 97 - Laboratory Lab Statement: Any lab studies that have been ordered have been reviewed, and results considered in the medical decision making process. Course/Dx - Course Assessment/Plan: tick bite with erythema migrans- h/o lyme, will check lyme titers and full 3 week course of abx - Diagnoses Provider Diagnoses: Tick bite of chest wall, Erythema migrans (Lyme disease) - Critical Care Time Critical Care Statement: Critical care time is provided exclusive of any time spent performing procedures. Discharge ED - Sign-Out/Discharge Documenting (check all that apply): Patient Departure All imaging exams completed and their final reports reviewed: No Studies - Discharge Plan Condition: Stable Disposition: HOME Prescriptions: DOXYcycline CAP(*) [DOXYcycline 100MG CAP(*)] 100 mg PO BID 21 Days #42 cap Patient Education Materials: Tick Bite (ED) Referrals: Maye Escalera MD [Primary Care Provider] - - Billing Disposition and Condition Condition: STABLE Disposition: Home
== END 2019-12-06 11:40 | disposition home or self-care (01) ==
LOC: UCCORT 10:19
DX: A69.20 Lyme disease, unspecified (principal); S20.361A Insect bite (nonvenomous) of right front wall of thorax, initial encounter; W57.XXXA Bitten or stung by nonvenomous insect and other nonvenomous arthropods, initial encounter; Y92.9 Unspecified place or not applicable; I10 Essential (primary) hypertension; F41.9 Anxiety disorder, unspecified; Z79.899 Other long term (current) drug therapy; Z88.1 Allergy status to other antibiotic agents; Z87.891 Personal history of nicotine dependence
CPT/HCPCS: 36415; 86618; 99212; G0463